=== PATIENT | female | born 1985 | race American Indian/Alaskan Native ===

== ENCOUNTER 2018-04-05 16:42 | Emergency (ER) | payer OTHER ==
--- NOTE | 2018-04-05 16:56 | Emergency Department Report ---
Blank Doc - Documentation Documentation: 32 y/o female 6 weeks c/o of having cramping and spotting that started today. no fever or chills. no dysuria Plan labs and us
[2018-04-05 17:15] LABS: Basophils % (Auto) 0.4 % (0.0-1.8); Eosinophils % (Auto) 0.4 % (0.0-4.3); Hematocrit 34.5 % (30.3-42.9); Hemoglobin 11.8 gm/dl (10.1-14.3); Lymphocytes # (Auto) 2.6 K/mm3 (1.2-5.4); Lymphocytes % (Auto) 25.1 % (13.4-35.0); Mean Corpuscular HGB Conc 34 % (30-34); Mean Corpuscular Volume 86 fl (79-97); Monocytes # (Auto) 0.7 K/mm3 (0.0-0.8); Monocytes % (Auto) 6.8 % (0.0-7.3); Platelet Count 312 K/mm3 (140-440); Red Blood Count 4.02 M/mm3 (3.65-5.03); Red Cell Distribution Width 15.5 % (13.2-15.2)
[2018-04-05 17:51] VITALS: BP 131/87
[2018-04-05 19:26] LABS: Bilirubin,Urine NEG (Negative); Blood,Urine SM (Negative); Color,Urine Straw (Yellow); Mucus,Urine FEW /HPF; Protein,Urine <15 mg/dL mg/dL (Negative); Urobilinogen,Urine < 2.0 mg/dL (<2.0)
--- NOTE | 2018-04-05 21:46 | Ultrasound Report ---
FINAL REPORT EXAM: US OB TRANSVAGINAL HISTORY: 6 weeks with spotting TECHNIQUE: Ultrasound obstetrical transvaginal PRIORS: None. FINDINGS: There is gestational sac within the uterus. There is a pole identified with irregular contour measuring 0.47 centimeters corresponding to e stimated gestational age of 6 weeks 1 day. No cardiac activity identified with M-mode and color Doppler. No definitive yolk sac identified Right ovary was not identified sonographically Left ovary is 2.2 x 1.9 x 1.8 centimeters note is made of a 1.6 centimeter left ovarian cyst. No free fluid identified in the cul-de-sac. IMPRESSION: Intrauterine gestational sac and pole with crown-rump length corresponding to 6 weeks 1 day. No cardiac activity identified. There is high concern for demise.
--- NOTE | 2018-04-05 21:52 | Ultrasound Report ---
FINAL REPORT EXAM: US OB < = 14 WEEKS FETUS HISTORY: Vaginal bleeding TECHNIQUE: Obstetrical ultrasound transabdominal PRIORS: Correlated with today's transvaginal exam FINDINGS: There is gestational sac within the uterus. There is a pole identified with irregular contour measuring 0.47 centimeters corresponding to e stimated gestational age of 6 weeks 1 day. No cardiac activity identified with M-mode and color Doppler. No definitive yolk sac identified Right ovary was not identified sonographically Left ovary is 2.2 x 1.9 x 1.8 centimeters note is made of a 1.6 centimeter left ovarian cyst. No free fluid identified in the cul-de-sac. IMPRESSION: Intrauterine gestational sac and pole with crown-rump length corresponding to 6 weeks 1 day. No cardiac activity identified. There is high concern for demise.
--- NOTE | 2018-04-05 22:10 | Emergency Department Report ---
ED HPI - General Chief complaint: Vaginal Bleeding Stated complaint: 6WKS /SPOTTING Time Seen by Provider: 04/05/18 16:49 Source: patient Mode of arrival: Ambulatory Limitations: No Limitations - History of Present Illness Initial comments: 32-year-old -[place] female that's 2 para 0 presents to the emergency room for vaginal spotting that began today. Patient noticed blood on tissue only. Patient also complains of intermittent cramping 2 days. She states that she is 6 weeks . Patient reports that she had an ultrasound done in the clinic and it was reported that possibly too early to appreciate the . Patient reports her last menstrual period was 01/27/2018. Patient reports her next appointment is 04/15/2014. She reports her OB doctor Is Inocencio Boss at [facility]. Patient does admit intermittent nausea no vomiting no dysuria does have intermittent constipation no urinary urgency or frequency. MD Complaint: vaginal discharge -: days(s) (1 spotting, 2 days for cramping) Location: pelvis Radiation: none Severity: mild Severity scale (0 -10): 10 (initially but now 3 out of 10.) Quality: cramping Consistency: intermittent Improves with: none Worsens with: none Associated symptoms: denies: vaginal discharge, abdominal pain, dysuria, shortness of breath Vaginal bleeding: light :: Yes Number of weeks : 6 OB History - Current : no complications Last menstrual period: 01/27/18 Pre- care: followed by OB, previous ultrasound confi - Related Data : 2 Para: 0 Allergies Allergy/AdvReac Type Severity Reaction Status Date / Time Penicillins Allergy Hives Verified 04/05/18 17:49 ED Review of Systems ROS: Stated complaint: 6WKS /SPOTTING Other details as noted in HPI Comment: All other systems reviewed and negative Gastrointestinal: abdominal pain (pelvic cramping) Genitourinary: other (vaginal spotting) ED Past Medical Hx - Past Medical History Previous Medical History?: No - Surgical History Additional Surgical History: C 4-5 fused - Social History Smoking Status: Former Smoker Substance Use Type: None ED Physical Exam - General Limitations: No Limitations General appearance: alert, in no apparent distress - Head Head exam: Present: atraumatic, normocephalic - Eye Eye exam: Present: normal appearance - ENT ENT exam: Present: mucous membranes moist - Neck Neck exam: Present: normal inspection - Respiratory Respiratory exam: Present: normal lung sounds bilaterally. Absent: respiratory distress - Cardiovascular Cardiovascular Exam: Present: regular rate, normal rhythm. Absent: systolic murmur, diastolic murmur, rubs, gallop - GI/Abdominal GI/Abdominal exam: Present: soft, normal bowel sounds. Absent: tenderness - Extremities Exam Extremities exam: Present: normal inspection - Back Exam Back exam: Present: normal inspection, full ROM - Neurological Exam Neurological exam: Present: alert, oriented X3 - Psychiatric Psychiatric exam: Present: normal affect, normal mood - Skin Skin exam: Present: warm, dry, intact, normal color. Absent: rash ED Course Vital Signs 04/05/18 17:49 Temperature 98 F Pulse Rate 96 H Respiratory 16 Rate Blood Pressure 131/87 O2 Sat by Pulse 100 Oximetry - Reevaluation(s) Reevaluation #1: 04/05/18 22:[address] Rosanna Frausto from [facility] regarding results from ultrasound. She reported a patient can keep her next appointment on 04/15/2018 or she can call the office and make an earlier appointment. ED Medical Decision Making - Lab Data Result diagrams: 04/05/18 16:57 - Radiology Data Radiology results: report reviewed Ordering Physician: FARHANA PERSAUD Date of Service: 04/05/18 Procedure(s): US OB <= 14 weeks fetus Accession Number(s): [id number] cc: FARHANA PERSAUD FINAL REPORT EXAM: US OB lt; = 14 WEEKS FETUS HISTORY: Vaginal bleeding TECHNIQUE: Obstetrical ultrasound transabdominal PRIORS: Correlated with today's transvaginal exam FINDINGS: There is gestational sac within the uterus. There is a pole identified with irregular contour measuring 0.47 centimeters corresponding to estimated gestational age of 6 weeks 1 day. No cardiac activity identified with M-mode and color Doppler. No definitive yolk sac identified Right ovary was not identified sonographically Left ovary is 2.2 x 1.9 x 1.8 centimeters note is made of a 1.6 centimeter left ovarian cyst. No free fluid identified in the cul-de-sac. IMPRESSION: Intrauterine gestational sac and pole with crown-rump length corresponding to 6 weeks 1 day. No cardiac activity identified. There is high concern for demise. Transcribed By: JOHNSON Dictated By: LYNNE SANTILLAN MD Electronically Authenticated By: LYNNE SANTILLAN MD Signed Date/Time: 04/05/182151 - Medical Decision Making Patient has been evaluated by this provider in fast track. Patient had ultrasound which shows a gestational sac but no cardiac activity radiologists has a strong belief of demise. Discussed with patient report. Recommended patient to follow up with her OB provider in the next 2-3 days. Patient could have Tylenol for pain management. Critical care attestation.: If time is entered above; I have spent that time in minutes in the direct care of this critically ill patient, excluding procedure time. ED Disposition Clinical Impression: Abnormal ultrasound Qualifiers: Weeks of gestation: less than 8 weeks Qualified Code(s): Z3A.01 - Less than 8 weeks gestation of Disposition: DC-01 TO HOME OR SELFCARE Is pt being admited?: No Does the pt Need Aspirin: No Condition: Stable Additional Instructions: Please follow-up with your OB doctor in the next 2-3 days. Tylenol for pain management. Referrals: MAO DYER MD [Primary Care Provider] - 3-5 Days ROSANNA FRAUSTO MD [Referring] - 3-5 Days Forms: Work/School Release Form(ED)
== END 2018-04-05 22:54 | disposition home or self-care (01) ==
LOC: ED 16:42
DX: O35.9XX0 Maternal care for (suspected) fetal abnormality and damage, unspecified, not applicable or unspecified (principal); O26.851 Spotting complicating pregnancy, first trimester; O26.891 Other specified pregnancy related conditions, first trimester; R10.9 Unspecified abdominal pain; Z3A.01 Less than 8 weeks gestation of pregnancy
CPT/HCPCS: 36415; 76801; 76817; 81001; 84702; 85025; 86900; 86901